=== PATIENT | male | born 1955 | race Caucasian/White ===

== ENCOUNTER 2016-07-20 07:37 | Day surgery (SDC) | payer OTHER ==
[~2016-07-20 07:37] MED LIST: FENTANYL 250 MCG/5 ML AMP IV PRN; IV START KIT ONE; LACTATED RINGERS 1,000 ML IV SCH; LACTATED RINGERS 1,000 ML ONE; LIDOCAINE Viscous 2% 15 ML UDCUP PO PRN; MIDAZOLAM HCL 5 MG/5 ML VIAL IV PRN
[2016-07-20] MEDS ORDERED: FENTANYL 100 MCG/2 ML VIAL ONE ×2 (08:01→08:02)
[2016-07-20] MEDS ORDERED: MIDAZOLAM HCL 5 MG/5 ML VIAL ONE (08:01)
[2016-07-20] MEDS ORDERED: LIDOCAINE Viscous 2% 15 ML UDCUP ONE (08:02)
[2016-07-20 13:19] LABS: HELICOBACTER PYLORII DETECTION NEGATIVE (NEGATIVE)
--- NOTE | 2016-07-22 11:58 | SURGPATH ---
[facility] [address] [place] [id number] Patient Name: Davis UGALDE MR#: [id number] : 1955 Gender: M Specimen #: [id number] Collected: 07/20/2016 Received: 07/21/2016 Reported: 07/22/2016 Submitting Phys: MARC LOTT Copy To Phys: [facility] MARY SCHULZ Clinical History / Pre-Operative Diagnosis: DYSPHAGIA; RULE OUT HERNANDEZ'S Specimen Source / Surgical Procedure Performed: #1-ANTRAL; #2-ESOPHAGUS AT 36 CM Interpretation: STOMACH, BIOPSY: - NO PATHOLOGIC ABNORMALITY 2. ESOPHAGUS AT 36 CM, BIOPSY: - BENIGN GASTRIC CARDIA-TYPE MUCOSA - NEGATIVE FOR INTESTINAL METAPLASIA Electronically Signed Out Mary Hu M.D. Gross Description: #1 The specimen is received in a formalin filled container labeled with the patient's name and "antral". Two beard biopsies are 0.3 and 0.5 cm. Totally embedded in cassette #1. #2 The specimen is received in a formalin filled container labeled with the patient's name and "esophageal". Four tran biopsies are 0.2-0.4 cm. Totally embedded in cassette #2. Ercia Chung Microscopic Description: Microscopic performed. 1: [id number] 2: 48108 R13.10
== END 2016-07-20 09:20 | disposition home or self-care (01) ==
LOC: SDC 07:37
PROVIDERS: ATTEND Internal Medicine Gastroenterology
PROC: 0D748ZZ Dilation of Esophagogastric Junction, Via Natural or Artificial Opening Endoscopic (ICD-10-PCS; principal; 2016-07-20)
PROC: 0DB68ZX Excision of Stomach, Via Natural or Artificial Opening Endoscopic, Diagnostic (ICD-10-PCS; 2016-07-20)
PROC: 0DB58ZX Excision of Esophagus, Via Natural or Artificial Opening Endoscopic, Diagnostic (ICD-10-PCS; 2016-07-20)
DX: Q39.4 Esophageal web (principal); K22.70 Barrett's esophagus without dysplasia; K29.70 Gastritis, unspecified, without bleeding; K57.30 Diverticulosis of large intestine without perforation or abscess without bleeding; H40.9 Unspecified glaucoma
CPT/HCPCS: 43249; 43239; 87081; J3010 ×2; J2250; A9270; J7120